=== PATIENT | female | born 1975 | race African-American/Black ===

== ENCOUNTER 2017-04-03 22:24 | Emergency (ER) | payer OTHER ==
[~2017-04-03] VITALS: Ht 165.1 cm; Wt 111.1 kg
[~2017-04-03 22:24] MED LIST: ALBUTEROL INHAL17 GM INH; AZITHROMYCIN 2250 MG PO; FISH OIL 1,0001 EAC5; HYDROCHLOROTH12.5 MG PO; LISINOPRIL40 MG PO; LOPRESSOR100 MG PO; MEDROLDOSEPACK PO
[2017-04-03] MEDS ORDERED: KLOR-CON 1010 MEQ (22:36)
[2017-04-03] MEDS ORDERED: HYDROCODONE-AP1 EAC6 PO (22:56)
[2017-04-03] MEDS ORDERED: AMOXIL 875 MG875 M1 PO (22:56)
[2017-04-03] MEDS ORDERED: MEDROLDOSEPACK PO (22:56)
[2017-04-03 23:13] VITALS: BP 158/70
== END 2017-04-03 23:16 | disposition home or self-care (01) ==
LOC: M.ERS 22:24
DX: J02.9 Acute pharyngitis, unspecified (principal); K08.89 Other specified disorders of teeth and supporting structures